=== PATIENT | female | born 1970 | race Caucasian/White ===

== ENCOUNTER 2018-06-04 07:50 | Emergency (ER) | payer OTHER ==
[~2018-06-04] VITALS: Ht 167.6 cm; Wt 89.4 kg
[2018-06-04 07:57] VITALS: Ht 167.6 cm; Wt 89.4 kg
[2018-06-04 09:40] VITALS: BP 132/84
== END 2018-06-04 09:40 | disposition home or self-care (01) ==
LOC: ED 07:50
DX: J18.1 Lobar pneumonia, unspecified organism (principal); R51 Headache; I10 Essential (primary) hypertension
CPT/HCPCS: 87804; Q0092

== ENCOUNTER 2018-06-14 15:28 | Emergency (ER) | payer OTHER ==
[~2018-06-14] VITALS: Ht 167.6 cm; Wt 87.5 kg
[2018-06-14 15:31] VITALS: Ht 167.6 cm; Wt 87.5 kg
[2018-06-14 17:39] VITALS: BP 140/88
== END 2018-06-14 16:40 | disposition home or self-care (01) ==
LOC: ED 15:28
DX: J98.01 Acute bronchospasm (principal); F17.200 Nicotine dependence, unspecified, uncomplicated; I10 Essential (primary) hypertension
CPT/HCPCS: 99406; J7512; J7613; J7644

== ENCOUNTER 2019-07-15 18:35 | Emergency (ER) | payer OTHER | END 2019-07-15 19:42 | disposition left against medical advice (07) | LOC: ED 18:35 | DX: Z53.21 Procedure and treatment not carried out due to patient leaving prior to being seen by health care provider (principal) ==